=== PATIENT | male | born 1935 | race Caucasian/White ===

== ENCOUNTER → 2016-05-09 | Outpatient (CLI) | payer OTHER ==
[~2016-05-09] MED LIST: ATEN50TA OR; Amlodipine PO; Aspirin PO; FINA5TAB4 OR; LISI-646 OR; NAPR-604 OR; OMEP20TA44 OR; Paroxetine; SILO8CAP2 OR; SIMV10TA84 OR
[2016-05-09 12:32] LABS: Basophils # (auto) 0 uL; Basophils % (auto) 0.5 % (0.0-2.0); Eosinophils # (auto) 0.6 uL; Eosinophils % (auto) 6.9 % (0.0-7.0); Hematocrit 44.8 % (41.0-53.0); Hemoglobin 14.6 g/dL (13.5-17.5); Lymphocytes % (auto) 34.9 % (10.0-50.0); Mean Corpuscular Hemoglobin 30.3 pg (28.0-32.0); Mean Corpuscular Hgb Conc. 32.5 g/dL (32.0-36.0); Mean Corpuscular Volume 93.3 fL (80.0-100.0); Mean Platelet Volume 9.7 fL (7.4-10.4); Monocytes % (auto) 11.4 % (0.0-12.0); Neutrophils # (auto) 3.9 uL; Neutrophils % (auto) 46.3 % (37.0-80.0); Platelet Count (auto) 210 10^3/uL (140-450); Red Cell Distribution Width 12.6 % (11.6-16.0); White Blood Cell 8.5 10^3/uL (4.4-10.8)
[2016-05-09 12:57] LABS: Albumin 3.6 g/dL (3.4-5.0); BUN/Creatinine Ratio 21.7; Bilirubin, Total 0.7 mg/dL (0.2-1.0); Calcium 8.7 mg/dL (8.5-10.1); Potassium 4.8 mmol/L (3.5-5.1); Total Protein 7.1 g/dL (6.4-8.2)
[2016-05-09 13:10] LABS: Urine Bilirubin Negative (Negative); Urine Blood Negative /uL (Negative); Urine Color Yellow (Yellow); Urine Glucose Normal (Normal); Urine Ketone Negative (Negative); Urine Nitrite Negative (Negative); Urine RBC <1 /hpf (0 - 3); Urine Urobilinogen Normal (Negative)
== END | disposition home or self-care (01) ==
LOC: LAB 11:46
PROVIDERS: ATTEND Internal Medicine
DX: Z00.00 Encounter for general adult medical examination without abnormal findings (principal); I10 Essential (primary) hypertension; E11.9 Type 2 diabetes mellitus without complications; E55.9 Vitamin D deficiency, unspecified
CPT/HCPCS: 36415; 80053; 80061; 81001; 82306; 83036; 84153; 84443; 85025

== ENCOUNTER 2016-09-04 20:08 | Inpatient (IN) | payer OTHER ==
[~2016-09-04] VITALS: Ht 167.6 cm; Wt 75.7 kg
[2016-09-04] MEDS ORDERED: ASPirin 81 mg TAB PO ONE (20:30)
[2016-09-04 20:55] LABS: Basophils # (auto) 0.1 uL; Basophils % (auto) 0.8 % (0.0-2.0); Eosinophils # (auto) 0.6 uL; Eosinophils % (auto) 6.9 % (0.0-7.0); Hematocrit 44.5 % (41.0-53.0); Hemoglobin 15.1 g/dL (13.5-17.5); Lymphocytes # (auto) 3.5 uL; Lymphocytes % (auto) 39.5 % (10.0-50.0); Mean Corpuscular Hemoglobin 31.7 pg (28.0-32.0); Mean Corpuscular Hgb Conc. 33.9 g/dL (32.0-36.0); Mean Corpuscular Volume 93.5 fL (80.0-100.0); Mean Platelet Volume 10.4 fL (7.4-10.4); Monocytes # (auto) 1.1 uL; Monocytes % (auto) 12.3 % (0.0-12.0); Neutrophils # (auto) 3.5 uL; Neutrophils % (auto) 40.5 % (37.0-80.0); Platelet Count (auto) 176 10^3/uL (140-450); Red Cell Distribution Width 13.1 % (11.6-16.0); White Blood Cell 8.8 10^3/uL (4.4-10.8)
[2016-09-04 21:23] LABS: Albumin 3.6 g/dL (3.4-5.0); Anion Gap 12 (5-15); Aspartate Aminotransferase 27 U/L (15-37); BUN/Creatinine Ratio 14.4; Blood Urea Nitrogen 20 mg/dL (7-18); Calcium 7.8 mg/dL (8.5-10.1); Carbon Dioxide 21 mmol/L (21-32); Chloride 109 mmol/L (98-107); GFR African American 63 mL/min; GFR Non-African American 52 mL/min; Glucose 90 mg/dL (74-106); Potassium 4.2 mmol/L (3.5-5.1); Sodium 142 mmol/L (136-145)
[2016-09-04 21:24] LABS: INR 1.05 (0.9-1.15); Partial Thromboplastin Time 27.3 sec (22.64-33.71); Prothrombin Time 11.4 sec (9.37-12.3)
[2016-09-04 21:28] LABS: Alkaline Phosphatase 68 U/L (45-117); Bilirubin, Total 1.2 mg/dL (0.2-1.0); Total Protein 6.8 g/dL (6.4-8.2)
[2016-09-04 21:32] LABS: B-Type Natriuretic Peptide 186.74 pg/mL (0-100)
[2016-09-04 21:37] LABS: Temperature: 23.3 C (20.0-25.0)
[2016-09-05] MEDS ORDERED: MORPHINE SULF INJ 2 MG/ML SYRINGE 1ML IV PRN
[2016-09-05] MEDS ORDERED: NITROGLYCERIN 0.4 MG SL TAB SL PRN
[2016-09-05 08:29] VITALS: BP 126/85
[2016-09-05 09:36] VITALS: BP 126/85
[2016-09-05] MEDS: ASPirin 81 mg TAB PO SCH (09:40)
[2016-09-05] MEDS ORDERED: ENOXAPARIN SOD 60 MG/0.6 ML SYRINGE SC SCH ×2 (10:00)
[2016-09-05 12:24] VITALS: BP 127/83
[2016-09-05 16:29] VITALS: BP 126/75
[2016-09-05 17:58] LABS: Urine Bilirubin Negative (Negative); Urine Blood Negative /uL (Negative); Urine Color Yellow (Yellow); Urine Glucose Normal (Normal); Urine Ketone Negative (Negative); Urine Nitrite Negative (Negative); Urine RBC <1 /hpf (0 - 3); Urine Squamous Epithelial Cell FEW /hpf (<5); Urine Urobilinogen Normal (Negative)
[2016-09-05 20:00] VITALS: BP 127/64
[2016-09-05] MEDS: ATORVASTATIN 20 MG TAB PO SCH (21:03)
[2016-09-05 22:00] VITALS: BP 115/64
[2016-09-06 05:00] VITALS: BP 115/63
[2016-09-06 08:00] VITALS: BP 112/64
[2016-09-06 09:00] VITALS: BP 112/64
[2016-09-06] MEDS ORDERED: ADENOSINE 64 MG in GIVE UN-DILUTED 0 ML IV ONE (09:15)
[2016-09-06] MEDS: ASPirin 81 mg TAB PO SCH (12:17)
[2016-09-06] MEDS: FAMOTIDINE 20 MG TAB PO SCH (12:17)
[2016-09-06] MEDS: FINASTERIDE 5 MG TAB PO SCH (12:17)
[2016-09-06 13:00] VITALS: BP 130/74
[2016-09-06] MEDS: ATORVASTATIN 20 MG TAB PO SCH (21:08)
[2016-09-06 22:00] VITALS: BP 123/65
[2016-09-07 05:00] VITALS: BP 128/81
[2016-09-07 09:23] VITALS: BP 146/64
[2016-09-07] MEDS: FAMOTIDINE 20 MG TAB PO SCH (10:18)
[2016-09-07] MEDS: ASPirin 81 mg TAB PO SCH (10:18)
[2016-09-07] MEDS: FINASTERIDE 5 MG TAB PO SCH (10:19)
[2016-09-07 13:00] VITALS: BP 133/73
== END 2016-09-07 13:30 | disposition home or self-care (01) | DRG 302 ==
LOC: ER 20:09 → TELE 20:10 → TELE-WESTW 09-05 09:08
PROVIDERS: ADMIT Internal Medicine Cardiovascular Disease; ATTEND Internal Medicine
DX: I25.110 Atherosclerotic heart disease of native coronary artery with unstable angina pectoris (principal); I50.41 Acute combined systolic (congestive) and diastolic (congestive) heart failure; I13.0 Hypertensive heart and chronic kidney disease with heart failure and stage 1 through stage 4 chronic kidney disease, or unspecified chronic kidney disease; K21.9 Gastro-esophageal reflux disease without esophagitis; F03.90 Unspecified dementia, unspecified severity, without behavioral disturbance, psychotic disturbance, mood disturbance, and anxiety; N18.3 Chronic kidney disease, stage 3 (moderate); F32.9 Major depressive disorder, single episode, unspecified; E78.5 Hyperlipidemia, unspecified; N40.0 Benign prostatic hyperplasia without lower urinary tract symptoms; R00.1 Bradycardia, unspecified; Z82.49 Family history of ischemic heart disease and other diseases of the circulatory system; Z83.3 Family history of diabetes mellitus; Z88.2 Allergy status to sulfonamides; Z95.5 Presence of coronary angioplasty implant and graft
CPT/HCPCS: 36415; 71010; 78452; 80053; 81001; 83735; 83880; 84443; 84484; 85025; 85379; 85610; 85730; 87081; 93005; 93017; 93306; 94761; J0153

== ENCOUNTER 2016-09-17 16:24 | Emergency (ER) | payer OTHER ==
[2016-09-17 16:51] VITALS: BP 121/74
[2016-09-17 17:37] LABS: Albumin 3.6 g/dL (3.4-5.0); BUN/Creatinine Ratio 20.5; Bilirubin, Total 1.1 mg/dL (0.2-1.0); Calcium 8.6 mg/dL (8.5-10.1); Magnesium 2.3 mg/dL (1.6-2.6); Total Protein 6.7 g/dL (6.4-8.2)
[2016-09-17 17:39] LABS: Basophils # (auto) 0.1 uL; CONDITION Y; Eosinophils # (auto) 0.4 uL; Eosinophils % (auto) 5.5 % (0.0-7.0); Hematocrit 44.3 % (41.0-53.0); Hemoglobin 15.2 g/dL (13.5-17.5); Lymphocytes # (auto) 2.6 uL; Lymphocytes % (auto) 32.6 % (10.0-50.0); Mean Corpuscular Hemoglobin 31.7 pg (28.0-32.0); Mean Corpuscular Hgb Conc. 34.2 g/dL (32.0-36.0); Mean Corpuscular Volume 92.7 fL (80.0-100.0); Mean Platelet Volume 9.9 fL (7.4-10.4); Monocytes # (auto) 0.8 uL; Monocytes % (auto) 9.9 % (0.0-12.0); Neutrophils # (auto) 4.1 uL; Platelet Count (auto) 201 10^3/uL (140-450); Red Cell Distribution Width 13.2 % (11.6-16.0)
[2016-09-17] MEDS ORDERED: ONDANSETRON HCL 4 MG/2 ML VIAL IM ONE (20:15)
[2016-09-17] MEDS ORDERED: MORPHINE SULFATE 4 MG/ML SYRG IM ONE (20:15)
== END 2016-09-17 21:03 | disposition home or self-care (01) ==
LOC: ER 16:24
DX: G89.29 Other chronic pain (principal); M25.551 Pain in right hip; I25.10 Atherosclerotic heart disease of native coronary artery without angina pectoris; K21.9 Gastro-esophageal reflux disease without esophagitis; I10 Essential (primary) hypertension; Z88.2 Allergy status to sulfonamides; Z79.82 Long term (current) use of aspirin; Z79.899 Other long term (current) drug therapy
CPT/HCPCS: 36415; 73502; 80053; 83735; 84484; 85025; 96372; 99285; J2270; J2405

== ENCOUNTER → 2017-03-15 | Outpatient (CLI) | payer OTHER ==
[~2017-03-15] MED LIST changes: -NAPR-604 OR; +NAPR375T27 OR
[2017-03-15 11:52] LABS: Basophils # (auto) 0.1 uL; Eosinophils # (auto) 0.4 uL; Eosinophils % (auto) 4.9 % (0.0-7.0); Hematocrit 45.6 % (41.0-53.0); Hemoglobin 15.3 g/dL (13.5-17.5); Lymphocytes # (auto) 2.7 uL; Lymphocytes % (auto) 34.2 % (10.0-50.0); Mean Corpuscular Hemoglobin 32.1 pg (28.0-32.0); Mean Corpuscular Hgb Conc. 33.6 g/dL (32.0-36.0); Mean Corpuscular Volume 95.5 fL (80.0-100.0); Mean Platelet Volume 9.4 fL (6.9-10.8); Monocytes # (auto) 0.8 uL; Monocytes % (auto) 10.8 % (0.0-12.0); Neutrophils # (auto) 3.8 uL; Neutrophils % (auto) 49.1 % (37.0-80.0); Platelet Count (auto) 150 10^3/uL (140-450); Red Cell Distribution Width 12.6 % (11.8-14.3); White Blood Cell 7.8 10^3/uL (4.4-10.8)
[2017-03-15 12:24] LABS: Albumin 3.8 g/dL (3.4-5.0); BUN/Creatinine Ratio 23.6; Potassium 4.8 mmol/L (3.5-5.1)
== END | disposition home or self-care (01) ==
LOC: LAB 11:25
PROVIDERS: ATTEND Physician Assistant
DX: I51.9 Heart disease, unspecified (principal); N18.3 Chronic kidney disease, stage 3 (moderate); G30.0 Alzheimer's disease with early onset; I21.9 Acute myocardial infarction, unspecified
CPT/HCPCS: 36415; 80053; 80061; 85025

== ENCOUNTER 2017-04-23 17:35 | Inpatient (IN) | payer OTHER ==
[~2017-04-23] VITALS: Ht 167.6 cm; Wt 73.9 kg
[2017-04-23] MEDS ORDERED: ASPirin 81 mg TAB PO ONE (18:30)
[2017-04-23] MEDS ORDERED: ASPirin 81 mg TAB ONE (18:35)
[2017-04-23 18:42] LABS: Basophils # (auto) 0.1 uL; Basophils % (auto) 0.9 % (0.0-2.0); Eosinophils # (auto) 0.5 uL; Eosinophils % (auto) 5.6 % (0.0-7.0); Hematocrit 38.5 % (41.0-53.0); Hemoglobin 13.2 g/dL (13.5-17.5); Lymphocytes # (auto) 2.8 uL; Lymphocytes % (auto) 31.6 % (10.0-50.0); Mean Corpuscular Hemoglobin 32.5 pg (28.0-32.0); Mean Corpuscular Hgb Conc. 34.4 g/dL (32.0-36.0); Mean Corpuscular Volume 94.4 fL (80.0-100.0); Monocytes # (auto) 1.2 uL; Monocytes % (auto) 13.1 % (0.0-12.0); Neutrophils # (auto) 4.3 uL; Neutrophils % (auto) 48.8 % (37.0-80.0); Platelet Count (auto) 150 10^3/uL (140-450); Red Blood Cells 4.07 10^6/uL (4.5-5.90); Red Cell Distribution Width 13.4 % (11.8-14.3); White Blood Cell 8.9 10^3/uL (4.4-10.8)
[2017-04-23 19:12] LABS: Alanine Aminotransferase 85 U/L (16-61); Albumin 3.1 g/dL (3.4-5.0); Alkaline Phosphatase 92 U/L (45-117); Anion Gap 10 (5-15); Aspartate Aminotransferase 57 U/L (15-37); Bilirubin, Total 0.5 mg/dL (0.2-1.0); Blood Urea Nitrogen 29 mg/dL (7-18); Carbon Dioxide 23 mmol/L (21-32); Chloride 107 mmol/L (98-107); GFR African American 67 mL/min; GFR Non-African American 55 mL/min; Glucose 89 mg/dL (74-106); Potassium 4.2 mmol/L (3.5-5.1); Sodium 140 mmol/L (136-145)
[2017-04-23] MEDS ORDERED: HYDROcodone-ACET 5/325MG TAB PO PRN (21:15)
[2017-04-23] MEDS ORDERED: ACETAMINOPHEN 500 MG TAB PO PRN (21:15)
[2017-04-23] MEDS ORDERED: ONDANSETRON HCL 4 MG/2 ML VIAL IV PRN ×2 (21:15→22:00)
[2017-04-23] MEDS ORDERED: MORPHINE SULF INJ 2 MG/ML SYRINGE 1ML IV PRN (22:00)
[2017-04-23] MEDS ORDERED: NITROGLYCERIN 0.4 MG SL TAB SL PRN (22:00)
[2017-04-23] MEDS ORDERED: IBUPROFEN 600 MG TAB PO PRN (22:00)
[2017-04-23] MEDS: ATORVASTATIN 20 MG TAB PO SCH (22:24)
[2017-04-23 23:00] VITALS: BP 135/72
[2017-04-23 23:20] VITALS: BP 135/72
[2017-04-23] MEDS: DONEPEZIL HYDROCHLORIDE 5 MG TAB PO SCH (23:48)
[2017-04-24] MEDS ORDERED: INFLUENZA QUAD 2017-2018 0.5 ML SYRG IM ONE (04:30)
[2017-04-24] MEDS ORDERED: ATOR10TA PO (04:36)
[2017-04-24] MEDS ORDERED: FINA5TAB4 PO (04:38)
[2017-04-24] MEDS ORDERED: ASPI-231 PO (04:38)
[2017-04-24] MEDS ORDERED: OMEG100078 PO (04:38)
[2017-04-24] MEDS ORDERED: CHOL50004 PO (04:38)
[2017-04-24] MEDS ORDERED: CYAN100056 PO (04:38)
[2017-04-24] MEDS ORDERED: AMLO5TAB2 PO (04:38)
[2017-04-24 05:54] VITALS: BP 97/55
[2017-04-24 07:14] LABS: Basophils # (auto) 0.1 uL; Eosinophils # (auto) 0.5 uL; Eosinophils % (auto) 5.4 % (0.0-7.0); Hematocrit 36.6 % (41.0-53.0); Hemoglobin 12.4 g/dL (13.5-17.5); Lymphocytes # (auto) 2.8 uL; Lymphocytes % (auto) 32.6 % (10.0-50.0); Mean Corpuscular Hemoglobin 32.2 pg (28.0-32.0); Mean Corpuscular Volume 94.7 fL (80.0-100.0); Monocytes # (auto) 1.2 uL; Monocytes % (auto) 13.7 % (0.0-12.0); Neutrophils % (auto) 47.3 % (37.0-80.0); Platelet Count (auto) 145 10^3/uL (140-450); Red Blood Cells 3.86 10^6/uL (4.5-5.90); Red Cell Distribution Width 13.3 % (11.8-14.3); White Blood Cell 8.5 10^3/uL (4.4-10.8)
[2017-04-24 07:37] LABS: Albumin 2.8 g/dL (3.4-5.0); BUN/Creatinine Ratio 21.4; Bilirubin, Total 0.8 mg/dL (0.2-1.0); Potassium 4.3 mmol/L (3.5-5.1); Total Protein 5.4 g/dL (6.4-8.2)
[2017-04-24 09:00] VITALS: BP 106/57
[2017-04-24] MEDS: ASPirin-EC 81 mg tab PO SCH (10:03)
[2017-04-24] MEDS: amLODIPine BESYLATE 5 MG TAB PO SCH (10:04)
[2017-04-24] MEDS: SODIUM CHLORIDE 0.9% 1,000 ML IV SCH ×2 (10:45→22:21)
[2017-04-24] MEDS ORDERED: ACETAMINOPHEN 500 MG TAB PO PRN (11:00)
[2017-04-24] MEDS ORDERED: IOHEXOL 350 MG/ML 100ML IJ ONE ×2 (11:03→17:25)
[2017-04-24 13:00] VITALS: BP 130/65
[2017-04-24 13:07] LABS: Urine Bacteria NONE SEEN /hpf (None Seen); Urine Blood Negative /uL (Negative); Urine Specific Gravity 1.023 (1.001-1.035); Urine WBC 1 /hpf (0 - 3)
[2017-04-24 16:43] LABS: INR 1.08 (0.9-1.15); Prothrombin Time 11.8 sec (9.37-12.3)
[2017-04-24 17:00] VITALS: BP 110/57
[2017-04-24 22:00] VITALS: BP 96/51
[2017-04-24] MEDS: DONEPEZIL HYDROCHLORIDE 5 MG TAB PO SCH (22:20)
[2017-04-24] MEDS: ASCORBIC ACID 500 MG TAB PO SCH (22:20)
[2017-04-24] MEDS: ATORVASTATIN 20 MG TAB PO SCH (22:21)
[2017-04-24] MEDS ORDERED: diphenhdrAMINE HCL 50 MG/1 ML VL IV ONE (23:30)
[2017-04-24] MEDS ORDERED: LORazepam 2MG/ML-1ML VIAL IV ONE (23:30)
[2017-04-25] MEDS ORDERED: LORazepam 2MG/ML-1ML VIAL ONE (04:34)
[2017-04-25] MEDS ORDERED: LORazepam 2MG/ML-1ML VIAL IV PRN ×2 (04:45→17:45)
[2017-04-25 06:00] VITALS: BP 114/67
[2017-04-25] MEDS: SODIUM CHLORIDE 0.9% 1,000 ML IV SCH ×2 (06:47→16:44)
[2017-04-25] MEDS ORDERED: IOHEXOL 350 MG/ML 100ML IJ ONE ×2 (07:35→14:47)
[2017-04-25] MEDS ORDERED: LIDOCAINE 2%HCL (LOCAL ANESTH.) INJ 20ML MDV ONE (07:35)
[2017-04-25] MEDS ORDERED: HALOPERIDOL LACTATE 5 MG/ML INJ VIAL IV PRN (08:45)
[2017-04-25] MEDS: ASPirin-EC 81 mg tab PO SCH (10:00)
[2017-04-25] MEDS: ASCORBIC ACID 500 MG TAB PO SCH ×2 (10:00→22:51)
[2017-04-25] MEDS: MULTIPLE VITAMIN TAB PO SCH (10:00)
[2017-04-25] MEDS: amLODIPine BESYLATE 5 MG TAB PO SCH (10:00)
[2017-04-25] MEDS ORDERED: ANGIOMAX 250 MG VIAL IV ONE (13:54)
[2017-04-25] MEDS ORDERED: fentaNYL CITRATE 100 MCG/2 ML VL ONE (13:54)
[2017-04-25] MEDS ORDERED: MIDAZOLAM HCL 1MG/1ML-2 ML VIAL ONE (13:54)
[2017-04-25] MEDS ORDERED: CLOPIDOGREL 300 MG TAB ONE (14:42)
[2017-04-25] MEDS ORDERED: MORPHINE SULFATE 4 MG/ML SYR/VIAL IV PRN (19:45)
[2017-04-25 22:00] VITALS: BP 132/68
[2017-04-25] MEDS: DONEPEZIL HYDROCHLORIDE 5 MG TAB PO SCH (22:51)
[2017-04-25] MEDS: ATORVASTATIN 20 MG TAB PO SCH (22:51)
[2017-04-26] MEDS: SODIUM CHLORIDE 0.9% 1,000 ML IV SCH (03:13)
[2017-04-26 05:00] VITALS: BP 130/71
[2017-04-26 06:01] LABS: Basophils # (auto) 0.1 uL; Basophils % (auto) 0.7 % (0.0-2.0); Eosinophils # (auto) 0.4 uL; Eosinophils % (auto) 4.2 % (0.0-7.0); Hematocrit 37.7 % (41.0-53.0); Hemoglobin 12.9 g/dL (13.5-17.5); Lymphocytes # (auto) 1.6 uL; Lymphocytes % (auto) 18.4 % (10.0-50.0); Mean Corpuscular Hemoglobin 32.1 pg (28.0-32.0); Mean Corpuscular Hgb Conc. 34.1 g/dL (32.0-36.0); Mean Corpuscular Volume 94.1 fL (80.0-100.0); Monocytes # (auto) 1.3 uL; Monocytes % (auto) 14.2 % (0.0-12.0); Neutrophils # (auto) 5.5 uL; Neutrophils % (auto) 62.5 % (37.0-80.0); Platelet Count (auto) 144 10^3/uL (140-450); Red Blood Cells 4.01 10^6/uL (4.5-5.90); Red Cell Distribution Width 13.3 % (11.8-14.3); White Blood Cell 8.8 10^3/uL (4.4-10.8)
[2017-04-26 06:15] LABS: BUN/Creatinine Ratio 16.5; Potassium 4.3 mmol/L (3.5-5.1)
[2017-04-26] MEDS ORDERED: CLOPIDOGREL BISULFATE 75 MG TAB PO SCH (10:00)
[2017-04-26] MEDS: ASCORBIC ACID 500 MG TAB PO SCH (10:09)
[2017-04-26] MEDS: MULTIPLE VITAMIN TAB PO SCH (10:09)
[2017-04-26] MEDS: ASPirin-EC 81 mg tab PO SCH (10:09)
[2017-04-26] MEDS ORDERED: CLOP75TA28 PO (10:39)
[2017-04-26] MEDS ORDERED: ATOR20TA50 PO (10:42)
[2017-04-26] MEDS ORDERED: HAL5T PO (10:42)
[2017-04-26] MEDS ORDERED: PANT40TA2 PO (10:42)
[2017-04-26 11:21] VITALS: BP 106/57
[2017-04-27] MEDS ORDERED: INFLUENZA QUAD 2017-2018 0.5 ML SYRG IM ONE (10:00)
== END 2017-04-26 13:59 | disposition home or self-care (01) | DRG 247 ==
LOC: ER 17:38 → TELE 17:39 → TELE-CENTR 22:51
PROVIDERS: ADMIT Nurse Practitioner Family; ATTEND Internal Medicine
PROC: 027135Z Dilation of Coronary Artery, Two Arteries with Two Drug-eluting Intraluminal Devices, Percutaneous Approach (ICD-10-PCS; principal; 2017-04-25)
PROC: 4A023N7 Measurement of Cardiac Sampling and Pressure, Left Heart, Percutaneous Approach (ICD-10-PCS; 2017-04-25)
PROC: B2111ZZ Fluoroscopy of Multiple Coronary Arteries using Low Osmolar Contrast (ICD-10-PCS; 2017-04-25)
DX: I25.119 Atherosclerotic heart disease of native coronary artery with unspecified angina pectoris (principal); E44.0 Moderate protein-calorie malnutrition; F05 Delirium due to known physiological condition; D64.9 Anemia, unspecified; F32.9 Major depressive disorder, single episode, unspecified; I12.9 Hypertensive chronic kidney disease with stage 1 through stage 4 chronic kidney disease, or unspecified chronic kidney disease; F03.90 Unspecified dementia, unspecified severity, without behavioral disturbance, psychotic disturbance, mood disturbance, and anxiety; E78.5 Hyperlipidemia, unspecified; K21.9 Gastro-esophageal reflux disease without esophagitis; R00.1 Bradycardia, unspecified; R09.1 Pleurisy; N18.3 Chronic kidney disease, stage 3 (moderate); N40.0 Benign prostatic hyperplasia without lower urinary tract symptoms; Z79.899 Other long term (current) drug therapy; Z82.49 Family history of ischemic heart disease and other diseases of the circulatory system; Z83.3 Family history of diabetes mellitus; Z68.26 Body mass index [BMI] 26.0-26.9, adult; Z88.2 Allergy status to sulfonamides; Z79.82 Long term (current) use of aspirin; Z23 Encounter for immunization
CPT/HCPCS: 36415; 71045; 71275; 80048; 80053; 81001; 83735; 84484; 85025; 85379; 85610; 92928; 93005; 93458; 94761; 96360; 99152; 99153; C1874; C1887; J2250

== ENCOUNTER 2017-08-15 18:35 | Emergency (ER) | payer OTHER ==
[~2017-08-15] VITALS: Ht 167.6 cm; Wt 68.0 kg
[~2017-08-15 18:35] MED LIST changes: +AMLO5TAB2 PO; +ASPI-231 PO; -ATEN50TA OR; +ATOR20TA50 PO; -Amlodipine PO; -Aspirin PO; +CHOL50004 PO; +CLOP75TA28 PO; +CYAN100056 PO; +FINA5TAB4 PO; +HAL5T PO; -LISI-646 OR; -NAPR375T27 OR; +OMEG100078 PO; -OMEP20TA44 OR; +PANT40TA2 PO; -Paroxetine; -SIMV10TA84 OR
[2017-08-15 18:45] VITALS: BP 134/67
[2017-08-15] MEDS ORDERED: LIDOCAINE 1% (LOCAL ANESTH.) PF 5ml SDV ID ONE (20:00)
[2017-08-15] MEDS ORDERED: NEOMYCIN-BACITRACIN-POLYM UNITDOSE PKG TOP OINT TOP ONE (20:00)
[2017-08-15] MEDS ORDERED: ceFAZolin 1GM/100ML 100 ML IV ONE (20:45)
[2017-08-15] MEDS ORDERED: BACITRACIN-POLYMYXIN B TOPICAL OINT UD TOP ONE ×2 (20:58→21:30)
== END 2017-08-15 22:13 | disposition home or self-care (01) ==
LOC: ER 18:35
DX: S63.125A Dislocation of interphalangeal joint of left thumb, initial encounter (principal); S61.012A Laceration without foreign body of left thumb without damage to nail, initial encounter
CPT/HCPCS: 12002; 26770; 73140; 96365; 99284; J0690

== ENCOUNTER → 2018-01-15 | Outpatient (CLI) | payer OTHER ==
[~2018-01-15] MED LIST changes: +AMLO5TAB13 PO; -AMLO5TAB2 PO
== END | disposition home or self-care (01) ==
LOC: Rad HDHVI 16:20
PROVIDERS: ATTEND Internal Medicine Cardiovascular Disease
DX: I70.0 Atherosclerosis of aorta (principal)
CPT/HCPCS: 71046

== ENCOUNTER 2018-06-18 19:27 | Emergency (ER) | payer OTHER ==
[~2018-06-18] VITALS: Ht 167.6 cm; Wt 68.0 kg
[2018-06-18 19:49] VITALS: BP 118/56
[2018-06-18 20:14] LABS: Basophils # (auto) 0.1 uL; Basophils % (auto) 0.6 % (0.0-2.0); Eosinophils # (auto) 0.5 uL; Eosinophils % (auto) 4.9 % (0.0-7.0); Hematocrit 41.9 % (41.0-53.0); Hemoglobin 14.2 g/dL (13.5-17.5); Lymphocytes # (auto) 2.7 uL; Lymphocytes % (auto) 27.7 % (10.0-50.0); Mean Corpuscular Hemoglobin 31.8 pg (28.0-32.0); Mean Corpuscular Volume 93.4 fL (80.0-100.0); Monocytes # (auto) 1.4 uL; Monocytes % (auto) 14.3 % (0.0-12.0); Neutrophils # (auto) 5.1 uL; Neutrophils % (auto) 52.5 % (37.0-80.0); Platelet Count (auto) 203 10^3/uL (140-450); Red Blood Cells 4.48 10^6/uL (4.5-5.90); White Blood Cell 9.7 10^3/uL (4.4-10.8)
[2018-06-18 20:27] LABS: Partial Thromboplastin Time 26.1 sec (23.78-33.04); Prothrombin Time 10.7 sec (9.27-12.13)
[2018-06-18 20:29] LABS: Carbon Dioxide 21 mmol/L (21-32); Chloride 112 mmol/L (98-107); Potassium 4.5 mmol/L (3.5-5.1); Sodium 140 mmol/L (136-145)
[2018-06-18 20:30] LABS: Alanine Aminotransferase 57 U/L (16-61); Albumin 3.1 g/dL (3.4-5.0); Anion Gap 7 (5-15); Aspartate Aminotransferase 40 U/L (15-37); BUN/Creatinine Ratio 20.4; Blood Urea Nitrogen 33 mg/dL (7-18); Calcium 8.3 mg/dL (8.5-10.1); GFR African American 53 mL/min; GFR Non-African American 43 mL/min; Glucose 95 mg/dL (74-106); Magnesium 2.1 mg/dL (1.6-2.6)
[2018-06-18 20:31] LABS: Alkaline Phosphatase 98 U/L (45-117); Bilirubin, Total 0.7 mg/dL (0.2-1.0); Total Protein 6.8 g/dL (6.4-8.2)
== END 2018-06-19 | disposition left against medical advice (07) ==
LOC: ER 19:32
DX: R53.1 Weakness (principal); R40.4 Transient alteration of awareness; Z53.21 Procedure and treatment not carried out due to patient leaving prior to being seen by health care provider
CPT/HCPCS: 36415; 70450; 71045; 80053; 83735; 83880; 84484; 85025; 85610; 85730